=== PATIENT | female | born 1975 | race Caucasian/White ===

== ENCOUNTER 2020-03-08 14:30 | Emergency (ER) | payer MEDICAID, OTHER ==
--- NOTE | 2020-03-08 15:12 | ER Document Report ---
ED Medical Screen (RME) - General Chief Complaint: Abdominal Pain Stated Complaint: ABDOMINAL PAIN Time Seen by Provider: 03/08/20 15:10 Mode of Arrival: Wheelchair TRAVEL OUTSIDE OF THE [place] IN LAST 30 DAYS: No - HPI Onset: Last week Context: This 45-year-old female presents the emergency room with epigastric discomfort which is been ongoing for approximately 1 week associated now with diarrhea and some blood in her stool. My RME - Related Data Allergies/Adverse Reactions: No Known Allergies Allergy (Verified 01/21/16 18:56) Past Medical History GI Medical History: Reports: Hx Crohn's Disease Past Surgical History: Reports: Hx Section - x2, Hx Herniorrhaphy, Hx Hysterectomy - Immunizations Hx Diphtheria, Pertussis, Tetanus Vaccination: - Unknown Physical Exam - Vital signs Vitals: Temp Pulse Resp BP 99.1 F 108 H 20 138/102 H 03/08/20 14:36 03/08/20 14:36 03/08/20 14:36 03/08/20 14:36 Course - Vital Signs Vital signs: Temp Pulse Resp BP Pulse Ox 99.1 F 108 H 20 138/102 H 03/08/20 14:36 03/08/20 14:36 03/08/20 14:36 03/08/20 14:36
[2020-03-08] MEDS ORDERED: NORMAL SALINE 1000 ML 1,000 ML IV PRN (15:13)
[2020-03-08 16:01] LABS: ABSOLUTE BASOPHILS # (AUTO) 0.1 10^3/uL (0.0-0.2); ABSOLUTE EOSINOPHILS # (AUTO) 0.1 10^3/uL (0.0-0.6); ABSOLUTE LYMPHOCYTES (AUTO) 1.6 10^3/uL (0.5-4.7); ABSOLUTE MONOCYTES (AUTO) 0.5 10^3/uL (0.1-1.4); ABSOLUTE NEUT (AUTO) 4.2 10^3/uL (1.7-8.2); BASOPHILS % (AUTO) 0.9 % (0-2); EOSINOPHILS % (AUTO) 1.8 % (0-6); HEMATOCRIT 43.6 % (36.0-47.0); HEMOGLOBIN 15.3 g/dL (12.0-15.5); LYMPHOCYTES % (AUTO) 24.1 % (13-45); MEAN CORPUSCULAR HEMOGLOBIN 30.2 pg (27.0-33.4); MEAN CORPUSCULAR VOLUME 86 fl (80-97); MONOCYTES % (AUTO) 8.1 % (3-13); PLATELET COUNT 281 10^3/uL (150-450); RED BLOOD COUNT 5.06 10^6/uL (3.72-5.28); RED CELL DISTRIBUTION WIDTH 12.9 % (11.5-14.0); SEGMENTED NEUTROPHILS % (AUTO) 65.1 % (42-78); TOTAL CELLS COUNTED % (AUTO) 100 %; WHITE BLOOD COUNT 6.5 10^3/uL (4.0-10.5)
[2020-03-08 16:06] LABS: APPEARANCE,URINE CLEAR; BILIRUBIN,URINE NEGATIVE (NEGATIVE); COLOR,URINE YELLOW; GLUCOSE, URINE NEGATIVE (NEGATIVE); KETONES,URINE NEGATIVE (NEGATIVE); LEUKOCYTE ESTERASE,URINE NEGATIVE (NEGATIVE); NITRITE,URINE NEGATIVE (NEGATIVE); PROTEIN,URINE NEGATIVE (NEGATIVE); URINE SPECIFIC GRAVITY 1.021; UROBILINOGEN,URINE NEGATIVE mg/dL (<2.0)
[2020-03-08 16:21] LABS: ALBUMIN 4.4 g/dL (3.5-5.0); ALKALINE PHOSPHATASE 68 U/L (38-126); ANION GAP 7 (5-19); ASPARTATE AMINO TRANSFERASE 46 U/L (14-36); BILIRUBIN,TOTAL 0.5 mg/dL (0.2-1.3); BLOOD UREA NITROGEN 14 mg/dL (7-20); CALCIUM 9.6 mg/dL (8.4-10.2); CARBON DIOXIDE 27 mmol/L (22-30); CHLORIDE 105 mmol/L (98-107); GLUCOSE 124 mg/dL (75-110); POTASSIUM 3.9 mmol/L (3.6-5.0)
[2020-03-08] MEDS ORDERED: ONDANSETRON HCL INJ/PF 4 MG/2 ML SDV IV ONE (16:59)
[2020-03-08] MEDS ORDERED: FAMOTIDINE INJ/PF 20 MG/2 ML SDV IV ONE (16:59)
[2020-03-08] MEDS ORDERED: FENTANYL CITRATE INJ/PF 100 MCG/2 ML AMPUL IV ONE (16:59)
--- NOTE | 2020-03-08 17:00 | ER Document Report ---
ED GI/ - General Mode of Arrival: Wheelchair Information source: Patient TRAVEL OUTSIDE OF THE [place] IN LAST 30 DAYS: No - HPI Patient complains to provider of: Abdominal pain, Diarrhea, Vomiting Onset: Other - 5 days Timing/Duration: Persistent Quality of pain: Sharp Pain Level: 4 Location: Epigastric, LUQ, RUQ, Left flank, Right flank Associated symptoms: Blood in stool, Chills, Diarrhea, Nausea. denies: Fever, Urinary hesitancy, Urinary frequency, Urinary urgency, Vaginal discharge Exacerbated by: Denies Relieved by: Denies Similar symptoms previously: Yes Recently seen / treated by doctor: No <QUINTON VELEZ - Last Filed: 03/08/20 20:18> <JESSE DAVILA - Last Filed: 03/09/20 06:20> - General Chief Complaint: Abdominal Pain Stated Complaint: ABDOMINAL PAIN Time Seen by Provider: 03/08/20 15:10 Primary Care Provider: [facility] [Provider Group] - Follow up as needed Notes: Patient presents with 5-day history of abdominal tenderness and back pain. Patient states that yesterday she started to have nausea vomiting and diarrhea. Patient reports vomiting twice and having diarrhea x4 episodes. Patient states she does have chronic IBS so is uncertain if the diarrhea may be attributed to an exacerbation of her IBS. Patient states that she did notice blood with her bowel movement x2 episodes. Patient denies any fever or urinary symptoms. 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 Patient states she was also possibly diagnosed with Crohn's disease although they were not certain of the diagnosis and she did not follow back up with her GI specialist. (QUINTON VELEZ) - Related Data Allergies/Adverse Reactions: No Known Allergies Allergy (Verified 01/21/16 18:56) Past Medical History - General Information source: Patient - Social History Smoking Status: Former Smoker Frequency of alcohol use: None Drug Abuse: None Lives with: Family Family History: Reviewed & Not Pertinent Patient has homicidal ideation: No - Past Medical History Cardiac Medical History: Reports: Hx Hypercholesterolemia, Hx Hypertension GI Medical History: Reports: Hx Crohn's Disease - Possible, Hx Gastroesophageal Reflux Disease, Hx Irritable Bowel Past Surgical History: Reports: Hx Section - x2, Hx Herniorrhaphy, Hx Hysterectomy - Immunizations Hx Diphtheria, Pertussis, Tetanus Vaccination: - Unknown <QUINTON VELEZ - Last Filed: 03/08/20 20:18> Review of Systems - Review of Systems Constitutional: Chills. denies: Fever, Recent illness EENT: No symptoms reported Cardiovascular: No symptoms reported. denies: Chest pain Respiratory: No symptoms reported. denies: Cough, Short of breath Gastrointestinal: Abdominal pain, Diarrhea, Nausea, Vomiting, Blood streaked bowels. denies: Black stools Genitourinary: Flank pain. denies: Dysuria Female Genitourinary: No symptoms reported Musculoskeletal: No symptoms reported Skin: No symptoms reported Hematologic/Lymphatic: No symptoms reported Neurological/Psychological: No symptoms reported <QUINTON VELEZ - Last Filed: 03/08/20 20:18> Physical Exam - General General appearance: Appears well, Alert In distress: None - HEENT Head: Normocephalic Eyes: Normal Conjunctiva: Normal Nasal: Normal Mouth/Lips: Normal Mucous membranes: Normal Neck: Normal, Supple. No: Lymphadenopathy - Respiratory Respiratory status: No respiratory distress Chest status: Nontender Breath sounds: Normal. No: Rales, Rhonchi, Stridor, Wheezing Chest palpation: Normal - Cardiovascular Rhythm: Regular Heart sounds: S1 appreciated, S2 appreciated Murmur: No - Abdominal Inspection: Obese Distension: No distension Bowel sounds: Normal Tenderness: Tender - LUQ, suprapubic Organomegaly: No organomegaly - Rectal Tenderness: No Stool: Heme negative Hemorrhoids: External, Other - Fistula near anus that did have seepage of stool - Back Back: CVA tenderness - bilat - Extremities General upper extremity: Normal inspection, Normal strength General lower extremity: Normal inspection, Normal strength - Neurological Neuro grossly intact: Yes Cognition: Normal Hiltons Coma Scale Eye Opening: Spontaneous Sascha Coma Scale Verbal: Oriented Sascha Coma Scale Motor: Obeys Commands Sascha Coma Scale Total: 15 - Psychological Associated symptoms: Normal affect, Normal mood - Skin Skin Temperature: Warm Skin Moisture: Dry Skin Color: Normal <QUINTON VELEZ - Last Filed: 03/08/20 20:18> - Vital signs Vitals: Temp Pulse Resp BP 99.1 F 108 H 20 138/102 H 03/08/20 14:36 03/08/20 14:36 03/08/20 14:36 03/08/20 14:36 - Rectal Notes: THERON Irina as standby (QUINTON VELEZ) Course - Laboratory Result Diagrams: 03/08/20 15:45 03/08/20 15:45 <QUINTON VELEZ - Last Filed: 03/08/20 20:18> - Laboratory Result Diagrams: 03/08/20 15:45 03/08/20 15:45 <JESSE DAVILA - Last Filed: 03/09/20 06:20> - Re-evaluation Re-evalutation: 03/08/20 20:[address] scan. Patient reports that nausea is improved at this time. Patient reports mild upper abdominal tenderness. Bedside report and handoff given to BEAR Hutton. (QUINTON VELEZ) CT showing no acute concerning findings. There is a ventral hernia containing some fat, when I examined patient's abdomen I cannot find one particular area of tenderness which I do believe is the ventral hernia and patient winces with palpation of this area. There is no guarding or severe tenderness, no evidence of incarcerated hernia, no other concerning findings. I discussed with patient. She will be provided with surgical clinic referral, I did provide her with some pain medication and recommendations, I discussed return precautions, patient states understanding and agreement with plan. Stable and well-appearing at time of discharge. (JESSE DAVILA) - Vital Signs Vital signs: Temp Pulse Resp BP Pulse Ox 98.3 F 63 16 142/79 H 97 03/08/20 22:05 03/08/20 22:05 03/08/20 22:05 03/08/20 22:05 03/08/20 22:05 - Laboratory Laboratory results interpreted by me: 03/08/20 03/08/20 15:45 15:45 Glucose 124 H AST 46 H ALT 45 H Urine Blood SMALL H Discharge <QUINTON VELEZ - Last Filed: 03/08/20 20:18> <JESSE DAVILA - Last Filed: 03/09/20 06:20> - Discharge Clinical Impression: Nausea vomiting and diarrhea Abdominal pain Qualifiers: Abdominal location: generalized Qualified Code(s): R10.84 - Generalized abdominal pain Condition: Stable Disposition: HOME, SELF-CARE Additional Instructions: Your imaging shows a small ventral hernia. Based on your exam and symptoms I suspect this is the cause of your pain. Avoid heavy lifting, avoid constipation, you have been provided with pain and nausea medication to take if needed, if you do take the pain medication also take a stool softener to avoid constipation. Follow-up with general surgery referral for additional management of this. Return for any concerning symptoms including developing severe pain, hardness or redness to the area, uncontrolled vomiting, fever, or any other concerning or worsening symptoms. Prescriptions: Hydrocodone/Acetaminophen [[place] 5-325 mg Tablet] 1 - 2 tab PO Q6H PRN #12 tablet PRN Reason: Ondansetron [Zofran Odt 4 mg Tablet] 1 - 2 tab PO Q4H PRN #15 tab.rapdis PRN Reason: For Nausea/Vomiting Referrals: [facility] [Provider Group] - Follow up as needed
--- NOTE | 2020-03-08 21:22 | RADIOLOGY REPORT (SQ) ---
EXAM DESCRIPTION: CT ABDOMEN PELVIS WITH IV CONTRAST COMPLETED DATE/TME: 03/08/2020 00:00 CLINICAL HISTORY: 45 years, Female, abd pain, n/v, blood in stool, hx rectal fistula COMPARISON: None. TECHNIQUE: Contrast enhanced CT of the abdomen/pelvis was acquired. Coronal and sagittal reformations were created. Images were obtained after the uneventful administration of 100 mL of Omnipaque 350 intravenous contrast. Images stored on PACS. All CT scanners at this facility use dose modulation, iterative reconstruction, and/or weight based dosing when appropriate to reduce radiation dose to as low as reasonably achievable (ALARA). [facility]: Dose Right [facility]: CareDose [facility]: Dose Right [facility]: Teradose 4D [facility]: [employer] LIMITATIONS: None. FINDINGS: Limited evaluation of the lower chest reveals clear lung bases. The liver is diffusely low in attenuation relative to the spleen. No focal liver lesions are appreciated. Spleen, pancreas, and both adrenal glands appear normal. The gallbladder is absent. As a result, there is mild intrahepatic biliary ductal dilatation. The common bile duct appears normal in caliber. Both kidneys enhance symmetrically. No hydronephrosis or hydroureter. The urinary bladder is well distended and shows no suspicious finding. Uterus is absent. Neither ovary is visualized. Small and large bowel are normal in caliber. No evidence of bowel obstruction. Appendix is normal. Vascular structures opacify with contrast normally. No suspicious lymphadenopathy or drainable fluid collections are appreciated. Small fat-containing ventral hernia is noted just below the umbilicus. Bone windows through the abdomen/pelvis reveal no destructive osseous lesions. IMPRESSION: No acute abnormality within the abdomen or pelvis. Suspect hepatic steatosis. TECHNICAL DOCUMENTATION: Quality ID # 436: Final reports with documentation of one or more dose reduction techniques (e.g., Automated exposure control, adjustment of the mA and/or kV according to patient size, use of iterative reconstruction technique) copyright 2011 [employer]- All Rights Reserved
[2020-03-08] MEDS ORDERED: ONDANSETRON ODT 4 MG TAB (6 TAB/ER DISP) PO PRN (21:37)
[2020-03-08] MEDS ORDERED: HYDROCODONE/ACETAMINOPHEN 5-325 MG (6 TAB/ER DISP) PO PRN (21:37)
[2020-03-08 22:12] VITALS: BP 142/79
--- NOTE | 2020-03-09 20:51 | EKG REPORT ---
SEVERITY:- OTHERWISE NORMAL ECG - FAST SINUS ARRHYTHMIA, RATE [id number] : Confirmed by: Kayy Costa 09-Mar-2020 20:50:15
== END 2020-03-08 22:13 | disposition home or self-care (01) ==
LOC: ER 14:30
DX: R11.2 Nausea with vomiting, unspecified (principal); K43.9 Ventral hernia without obstruction or gangrene; R10.84 Generalized abdominal pain; K92.1 Melena; R68.83 Chills (without fever); L98.8 Other specified disorders of the skin and subcutaneous tissue; K64.4 Residual hemorrhoidal skin tags; R19.7 Diarrhea, unspecified; I10 Essential (primary) hypertension; Z87.891 Personal history of nicotine dependence
CPT/HCPCS: 93005; 99284; 96361; 96374; 96375; 36415; 83690; 85025; 80053; 81001; 84484; 74177; 93010; J3010; J2405; J7030; S0028

== ENCOUNTER → 2020-04-10 | Outpatient (CLI) | payer OTHER ==
--- NOTE | 2020-04-10 09:41 | RADIOLOGY REPORT (SQ) ---
EXAM DESCRIPTION: CT ABD/PELVIS WITH IV ORAL IMAGES COMPLETED DATE/TIME: 04/10/2020 8:50 am REASON FOR STUDY: K50.00 CROHN'S DISEASE OF SMALL INTESTINE WITHOUT COMPLICATIONS, K60.5 ANOR K50.00 CROHN'S DISEASE OF SMALL INTESTINE WITHOUT COMPLICATI K60.5 ANORECTAL FISTULA COMPARISON: 03/08/2020 TECHNIQUE: CT scan of the abdomen and pelvis performed using helical scanning technique with dynamic intravenous contrast injection. Patient was given rectal and oral contrast. Images reviewed with dillon ng, soft tissue, and bone windows. Reconstructed coronal and sagittal MPR images reviewed. Delayed im ages for evaluation of the urinary system also acquired. All images stored on PACS. All CT scanners at this facility use dose modulation, iterative reconstruction, and/or weight based d osing when appropriate to reduce radiation dose to as low as reasonably achievable (ALARA). [facility]: Dose Right [facility]: CareDose [facility]: Dose Right [facility]: Teradose 4D [facility]: [employer] CONTRAST TYPE AND DOSE: contrast/concentration: Isovue 350.00 mmol/ml; Total Contrast Delivered: 98. 0 ml; Total Saline Delivered: 72.0 ml RENAL FUNCTION: Creatinine 0.8 RADIATION DOSE: CT Rad equipment meets quality standard of care and radiation dose reduction techniq ues were employed. CTDIvol: 17.0 - 17.1 mGy. DLP: 1970 mGy-cm.. LIMITATIONS: None. FINDINGS: LOWER CHEST: No significant findings. No nodules or infiltrates. LIVER: Normal size. No masses. No dilated ducts. Suspect hepatic steatosis. SPLEEN: Normal size. No focal lesions. PANCREAS: Fullness of the pancreatic tail with 2.9 x 2.9 cm apparent mass (series 2, image 28), stabl e. No pancreatic ductal dilation. No peripancreatic stranding. GALLBLADDER: Surgically absent. ADRENAL GLANDS: No significant masses or asymmetry. RIGHT KIDNEY AND URETER: No solid masses. No significant calcifications. No hydronephrosis or hyd roureter. LEFT KIDNEY AND URETER: No solid masses. No significant calcifications. No hydronephrosis or hydr oureter. AORTA AND VESSELS: No aneurysm. No dissection. Separate origin of the hepatic and splenic arteries o ff the aorta. No high-grade mesenteric stenosis. . RETROPERITONEUM: No retroperitoneal adenopathy, hemorrhage or masses. BOWEL AND PERITONEAL CAVITY: Ill-defined soft tissue fullness along the perineum. No discrete drain able abscess or definitive fistula. No evidence of intestinal obstruction. No focal bowel wall thic kening. APPENDIX: Normal. PELVIS: Decompressed urinary bladder. Catheter within the rectum for administration of rectal contra st. Unchanged appearance of the left ovary. Right ovary nonvisualized. ABDOMINAL WALL: Small fat containing periumbilical hernia with a 18 mm aperture. No subcutaneous mas ses. Heterotopic ossification within the right gluteal region. BONES: No acute bony abnormality. No suspicious osseous lesions. OTHER: No other significant finding. IMPRESSION: 1. Ill-defined soft tissue fullness along the perineum. No discrete drainable abscess or definitive fistula. No evidence of intestinal obstruction. 2. Fullness of the pancreatic tail with questionable 2.9 x 2.9 cm solid mass, stable. Recommend ded icated pancreatic protocol CT or MRI for further characterization. No lymphadenopathy. 3. Suspect hepatic steatosis. Prior cholecystectomy. 4. Periumbilical fat containing hernia. TECHNICAL DOCUMENTATION: JOB ID: [id number] Quality ID # 436: Final reports with documentation of one or more dose reduction techniques (e.g., Au tomated exposure control, adjustment of the mA and/or kV according to patient size, use of iterative reconstruction technique) 2010 [employer]- All Rights Reserved Reading location - IP/workstation name: [email or web address]
== END ==
LOC: RAD 08:14
PROVIDERS: ATTEND Internal Medicine Gastroenterology
DX: K50.00 Crohn's disease of small intestine without complications (principal); K60.5 Anorectal fistula; K42.9 Umbilical hernia without obstruction or gangrene
CPT/HCPCS: 74177; 82565

== ENCOUNTER 2020-08-23 05:40 | Day surgery (SDC) | payer OTHER ==
[2020-08-20 10:16] LABS: HEMATOCRIT 39.7 % (36.0-47.0); HEMOGLOBIN 13.9 g/dL (12.0-15.5); MEAN CORPUSCULAR HEMOGLOBIN 30.1 pg (27.0-33.4); MEAN CORPUSCULAR HGB CONC 34.9 g/dL (32.0-36.0); MEAN CORPUSCULAR VOLUME 86 fl (80-97); PLATELET COUNT 214 10^3/uL (150-450); RED CELL DISTRIBUTION WIDTH 12.9 % (11.5-14.0); WHITE BLOOD COUNT 6.2 10^3/uL (4.0-10.5)
--- NOTE | 2020-08-20 15:16 | EKG REPORT ---
SEVERITY:- NORMAL ECG - SINUS RHYTHM : Confirmed by: Laina Morelos MD 20-Aug-2020 15:16:29
[~2020-08-23 05:40] MED LIST: ACETAMINOPHEN 1,000 MG/100 ML RTUPB IV ONE; ACETAMINOPHEN 1,000 MG/100 ML RTUPB IV PRN; CEFAZOLIN 2 GM/D5W RTU 2 GM/50 ML RTUPB IV ONE; CEFAZOLIN 2 GM/D5W RTU 2 GM/50 ML RTUPB IV PRN; IBUPROFEN 800 MG in NORMAL SALINE 250 ML IV PRN; LACTATED RINGERS 1000 ML IV PRN; LIDOCAINE 0.5% INJ-PF (5 MG/ML) 50 ML SDV SUBCUT PRN; PREGABALIN 50 MG CAPSULE PO PRN
[2020-08-23] MEDS ORDERED: HYDROMORPHONE HCL INJ/PF 2 MG/ML AMPULE ONE (06:44)
[2020-08-23] MEDS ORDERED: PROPOFOL INJ 200 MG/20 ML VIAL IV ONE (06:44)
[2020-08-23] MEDS ORDERED: FENTANYL CITRATE INJ/PF 250 MCG/5 ML AMPULE ONE (06:44)
[2020-08-23] MEDS ORDERED: BUPIVACAINE HCL 0.25 % INJ/PF (2.5 MG/1 ML) 30 ML VIAL ONE (06:48)
[2020-08-23] MEDS ORDERED: MIDAZOLAM 2 MG/2 ML INJ ONE (07:00)
[2020-08-23] MEDS ORDERED: DIPHENHYDRAMINE HCL 50 MG/ML VIAL IV PRN (09:12)
[2020-08-23] MEDS ORDERED: HYDROMORPHONE HCL INJ/PF 2 MG/ML AMPULE IV PRN (09:12)
[2020-08-23] MEDS ORDERED: MEPERIDINE HCL/PF INJ 25 MG/1 ML DISP.SYRIN IV PRN (09:12)
[2020-08-23] MEDS ORDERED: FENTANYL CITRATE INJ/PF 100 MCG/2 ML AMPUL IV PRN ×3 (09:12)
--- NOTE | 2020-08-23 10:08 | Operative Report ---
Nonrecallable Operative Report DATE OF SURGERY: 08/23/20 PREOPERATIVE DIAGNOSIS: Ventral, incisional hernia POSTOPERATIVE DIAGNOSIS: 1. Ventral/incisional hernia in the periumbilical region. 2. Right Spigelian hernia OPERATION: 1. Robot-assisted laparoscopic ventral, incisional hernia repair with mesh. 2. Robot-assisted laparoscopic right Spigelian hernia repair (primary suture repair). SURGEON: EMEKA BRUNNER HOUSE REPAIRER: CRYSTAL VELAZQUEZ ANESTHESIA: GA TISSUE REMOVED OR ALTERED: None COMPLICATIONS: None apparent ESTIMATED BLOOD LOSS: Minimal PROCEDURE: Drains/implants: 15 x [address] hernia mesh. Procedure in detail: After informed consent was obtained, the patient was brought into the operating room and laid in the supine position. The area of the abdomen was prepped and draped in a normal sterile fashion. A left upper quadrant trocar was placed via the Optiview technique, under direct laparoscopic visualization from the 5 mm camera. Once the camera was inserted into the abdominal cavity, gas insufflation was attached, and pneumoperitoneum was achi eved. Two 8 mm robotic trochars were then placed, one in the right upper quadrant, 1 in the left lower quadrant. This was done under direct laparoscopic visualization. The 5 mm trocar was removed, and replaced with a 12 mm balloon trocar. This was also done under direct laparoscopic visualization. The robot was then brought over the patient and docked appropriately. I then assumed my position at the surgeon's console. Attention was turned to lysis of adhesions, and removing the omentum. There was a large amount of omentum adherent to the anterior abdominal wall. The omentum was removed from the hernia defect, and the anterior abdominal wall using sharp dissection. Once this was completed, there was found to be a periumbilical incisional hernia, as well as a right-sided Spigelian hernia. The right-sided Spigelian hernia was repaired first. This was done with number 1 V lock suture in simple running fashion. After the Spigelian hernia was primarily repaired, the midline hernia defect was addressed. The midline hernia defect was closed using #1 V-Loc suture in simple running fashion. After this was completed, a 10 x [address] hernia mesh was placed into the abdominal cavity. It was apposed to the anterior abdominal wall using the EPS. Once completed, the mesh was sutured circumferentially to the anterior abdominal wall. This was done with 2-0 V lock suture in simple running fashion. The mesh was found to lie in very good place. The robot was undocked, and I scrubbed back into the patient's bedside. The 8 mm trocar sites were closed using 0 Vicryl suture in simple interrupted fashion with the aid of the King-Ulises device. The 12 mm trocar site was closed using 0 Vicryl suture in [id number] fashion with the aid of the King-Ulises device. The skin was then closed using 4-0 Vicryl Rapide suture in subcuticular fashion. Dressings were placed, and the procedure was concluded. All sponge, instrument, and needle counts were correct x2. Condition: Stable. Crystal Velazquez PA-C was scrubbed and present the entirety of the procedure. She assisted with all portions of the procedure including placement of the trochars, docking of the robot, exchanging of the robotic instruments, closure of the fascia, and closure of the skin.
--- NOTE | 2020-08-23 10:19 | Discharge Summary ---
Discharge Summary (SDC) - Discharge Final Diagnosis: Ventral incisional hernia and right Spigelian hernia Date of Surgery: 08/23/20 Discharge Date: 08/23/20 Forms: ASU Anesthesia D/C Instruction, Discharge POC-Surgical Service Treatment or Instructions: Discharge home. Diet as tolerated. Activity: No lifting more than 10 pounds up 6 weeks. Okay to shower starting on Wednesday. Follow-up with [facility] in 7 to 10 days. [place] 10/325 mg p.o. every 6 hours as needed for pain. No tub baths or swimming pools x2 weeks. Prescriptions: Hydrocodone/Acetaminophen [[place] 10-325 mg Tablet] 1 tab PO Q6HP PRN #28 tablet PRN Reason: For Pain Referrals: EMEKA ROWE MD [ACTIVE STAFF] - Discharge Diet: As Tolerated Respiratory Treatments at Home: Deep Breathing/Coughing, Incentive Spirometer Discharge Activity: No Lifting Over 10 Pounds, No Lifting/Push/Pulling Home Care Assistance: None Needed Report the Following to Your Physician Immediately: Shortness of Breath, Nausea, Vomiting, Increase in Pain, Fever over 101 Degrees
[2020-08-23] MEDS ORDERED: HYDROCODONE/ACETAMINOPHEN 10-325 MG TABLET PO PRN (10:29)
[2020-08-23] MEDS ORDERED: HYDROCODONE/ACETAMINOPHEN 10-325 MG TABLET ONE (10:37)
[2020-08-23 15:24] VITALS: BP 137/78
[2020-08-23] MEDS ORDERED: PHENYLEPHRINE HCL INJ/PF 10 MG/1 ML SDV ONE (15:34)
[2020-08-23] MEDS ORDERED: ONDANSETRON HCL INJ/PF 4 MG/2 ML SDV ONE (15:34)
[2020-08-23] MEDS ORDERED: DEXAMETHASONE SOD PHOSPHATE INJ 4 MG/1 ML VIAL ONE (15:34)
[2020-08-23] MEDS ORDERED: NEOSTIGMINE METHYLSULFATE 10 MG/10 ML VIAL ONE (15:34)
[2020-08-23] MEDS ORDERED: ROCURONIUM BROMIDE INJ 50 MG/5 ML VIAL IV ONE (15:34)
[2020-08-23] MEDS ORDERED: LIDOCAINE 2% INJ-PF (20 MG/ML) 2 ML AMPUL ONE (15:34)
[2020-08-23] MEDS ORDERED: GLYCOPYRROLATE 1 MG/5 ML VIAL ONE (15:34)
[2020-08-23] MEDS ORDERED: SUCCINYLCHOLINE CHLORIDE INJ 200 MG/10 ML VIAL ONE (15:34)
== END 2020-08-23 12:30 | disposition home or self-care (01) ==
LOC: OROUT 05:40
PROVIDERS: ATTEND Surgery
DX: K43.2 Incisional hernia without obstruction or gangrene (principal); K43.9 Ventral hernia without obstruction or gangrene; Z20.828 Contact with and (suspected) exposure to other viral communicable diseases; K50.90 Crohn's disease, unspecified, without complications; I10 Essential (primary) hypertension; E78.5 Hyperlipidemia, unspecified; E66.9 Obesity, unspecified; Z87.891 Personal history of nicotine dependence; Z86.010 Personal history of colon polyps; Z90.710 Acquired absence of both cervix and uterus; Z90.79 Acquired absence of other genital organ(s); Z90.49 Acquired absence of other specified parts of digestive tract
CPT/HCPCS: 49652; 49654; S2900; 36415; 790; 85027; 86850; 86900; 86901; 87635; 93005; 93010; C1781; C9803; J0131; J0330; J0690; J1100; J1170; J1741; J2250; J2370; J2405; J2704; J2710; J3010; J3490; J7050

== ENCOUNTER 2020-08-23 22:22 | Emergency (ER) | payer OTHER ==
[2020-08-23] MEDS ORDERED: HYDROMORPHONE HCL INJ/PF 2 MG/ML AMPULE IV ONE (23:11)
[2020-08-23] MEDS ORDERED: METOCLOPRAMIDE HCL INJ/PF 10 MG/2 ML SDV IV ONE (23:11)
[2020-08-23] MEDS ORDERED: NORMAL SALINE 1000 ML 1,000 ML IV ONE (23:12)
--- NOTE | 2020-08-23 23:12 | ER Document Report ---
ED General - General Chief Complaint: Abdominal Pain Stated Complaint: POST OP ABDOMINAL PAIN/VOMITING Time Seen by Provider: 08/23/20 23:05 Primary Care Provider: MIR PERRY PA-C [Primary Care Provider] - Follow up as needed Mode of Arrival: Ambulatory Information source: Patient Notes: Patient is a 45-year-old female coming in today for abdominal pain. Underwent a laparoscopic hernia repair earlier today. Around 8:00 this evening she started having uncontrollable pain with nausea and vomiting. No fevers or chills. TRAVEL OUTSIDE OF THE [place] IN LAST 30 DAYS: No - Related Data Allergies/Adverse Reactions: No Known Allergies Allergy (Verified 08/23/20 22:48) Past Medical History - Social History Smoking Status: Unknown if Ever Smoked Family History: Reviewed & Not Pertinent Patient has homicidal ideation: No - Past Medical History Cardiac Medical History: Reports: Hx Hypercholesterolemia, Hx Hypertension Denies: Hx Coronary Artery Disease, Hx Heart Attack Pulmonary Medical History: Denies: Hx Asthma, Hx COPD, Hx Pneumonia Neurological Medical History: Denies: Hx Cerebrovascular Accident, Hx Seizures GI Medical History: Reports: Hx Crohn's Disease - Possible, Hx Gastroesophageal Reflux Disease, Hx Irritable Bowel Musculoskeletal Medical History: Reports Hx Arthritis Past Surgical History: Reports: Hx Section - x2, Hx Herniorrhaphy, Hx Hysterectomy - Immunizations Hx Diphtheria, Pertussis, Tetanus Vaccination: No Review of Systems - Review of Systems Notes: Constitutional: No fevers. No chills. EENT: No eye redness. No eye pain. No ear pain. No sore throat. Cardiovascular: No chest pain. No palpitations. Respiratory: No cough. No shortness of breath. No respiratory distress. Gastrointestinal: + Abdominal pain with nausea and vomiting Genitourinary: Atraumatic. No lesions. No pain. No discharge. Musculoskeletal: Atraumatic. No swelling. No deformities. Skin: No rash or lesions. Lymphatic: No swollen lymph nodes. Neurologic: No headache. No syncope. Psychiatric: No suicidal or homicidal ideation. Physical Exam - Notes Notes: General: Moderate distress with pain Cardiac: Well-perfused. Regular rate and rhythm. No murmurs, rubs, or gallops. Pulmonary: No respiratory distress. No cyanosis. Bilateral lung banks are clear to auscultation. Abdominal: Obese abdomen. Soft. Diffusely tender although increasingly tender over the left lower abdomen. Multiple trocar sites consistent with laparoscopic surgery. No bleeding. Sounds are present in all 4 quadrants HEENT: Head is atraumatic. Conjunctivae not reddened. No tearing. PERRL. EOMI. Orbits atraumatic. No periorbital swelling or erythema. Oropharynx is without erythema, swelling, or exudates. Neck: Supple. No adenopathy. No meningismus. Dermatologic: Warm with good turgor. No rash. Atraumatic. Chest: Atraumatic. No chest wall tenderness to palpation. Musculoskeletal: Moves all extremities well. No range of motion deficits. no muscular or joint tenderness. No paraspinal muscle tenderness. no midline spinal tenderness or step-off. Genitourinary: Examination deferred Neurologic: No gross neurologic deficits. Psychiatric: Normal mood. Course - Re-evaluation Re-evalutation: 08/24/20 02:25 Patient has received Dilaudid, Reglan, and a liter of normal saline. Her pain is now a 2 out of 5. I am going to go ahead and give her a [place] 10 mg tablet as this is the same medication she was discharged home with. We will also give her a small bottle of Zofran to take home with her as well. I did touch base with Dr. Stubbs and he is amenable to the patient being discharged home and follow-up at her appointed clinic time. - Laboratory Result Diagrams: 08/24/20 00:00 08/24/20 00:00 Laboratory results interpreted by me: 08/24/20 08/24/20 08/24/20 00:00 00:00 01:25 WBC 13.3 H Lymph % (Auto) 7.0 L Absolute Neuts (auto) 11.8 H Seg Neutrophils % 88.7 H Sodium 134.8 L Glucose 188 H AST 78 H ALT 85 H Urine Ketones TRACE H Discharge - Discharge Clinical Impression: Postoperative abdominal pain Condition: Good Disposition: HOME, SELF-CARE Instructions: Abdominal Pain ([facility]) Additional Instructions: You may take Zofran every 4-6 hours as needed for nausea. Be sure to take your medication on time so that the pain does not get severe like it did earlier. Referrals: MIR PERRY PA-C [Primary Care Provider] - Follow up as needed
[2020-08-24 00:28] LABS: ABSOLUTE LYMPHOCYTES (AUTO) 0.9 10^3/uL (0.5-4.7); ABSOLUTE MONOCYTES (AUTO) 0.5 10^3/uL (0.1-1.4); ABSOLUTE NEUT (AUTO) 11.8 10^3/uL (1.7-8.2); BASOPHILS % (AUTO) 0.3 % (0-2); HEMATOCRIT 39.5 % (36.0-47.0); HEMOGLOBIN 13.8 g/dL (12.0-15.5); MEAN CORPUSCULAR HEMOGLOBIN 29.8 pg (27.0-33.4); MEAN CORPUSCULAR VOLUME 85 fl (80-97); PLATELET COUNT 265 10^3/uL (150-450); RED BLOOD COUNT 4.63 10^6/uL (3.72-5.28); RED CELL DISTRIBUTION WIDTH 12.9 % (11.5-14.0); SEGMENTED NEUTROPHILS % (AUTO) 88.7 % (42-78); TOTAL CELLS COUNTED % (AUTO) 100 %; WHITE BLOOD COUNT 13.3 10^3/uL (4.0-10.5)
[2020-08-24 00:51] LABS: ALBUMIN 4.4 g/dL (3.5-5.0); ALKALINE PHOSPHATASE 83 U/L (38-126); ANION GAP 11 (5-19); ASPARTATE AMINO TRANSFERASE 78 U/L (14-36); BILIRUBIN,DIRECT 0.1 mg/dL (0.0-0.4); BILIRUBIN,TOTAL 0.9 mg/dL (0.2-1.3); BLOOD UREA NITROGEN 10 mg/dL (7-20); CALCIUM 9.9 mg/dL (8.4-10.2); CARBON DIOXIDE 24 mmol/L (22-30); CHLORIDE 100 mmol/L (98-107); GLUCOSE 188 mg/dL (75-110); POTASSIUM 4.4 mmol/L (3.6-5.0); TOTAL PROTEIN 7.5 g/dL (6.3-8.2)
[2020-08-24 01:55] LABS: APPEARANCE,URINE CLEAR; BILIRUBIN,URINE NEGATIVE (NEGATIVE); COLOR,URINE YELLOW; GLUCOSE, URINE NEGATIVE (NEGATIVE); KETONES,URINE TRACE mg/dL (NEGATIVE); LEUKOCYTE ESTERASE,URINE NEGATIVE (NEGATIVE); NITRITE,URINE NEGATIVE (NEGATIVE); PROTEIN,URINE NEGATIVE (NEGATIVE); URINE SPECIFIC GRAVITY 1.016; UROBILINOGEN,URINE NEGATIVE mg/dL (<2.0)
--- NOTE | 2020-08-24 02:17 | RADIOLOGY REPORT (SQ) ---
CT abdomen and pelvis with contrast on 08/24/2020 at 1:33 AM CLINICAL INDICATION: Postoperative umbilical hernia repair pain TECHNIQUE: Multiple axial images are obtained throughout the abdomen and pelvis following the administration of IV contrast, 100 mL of Omnipaque 350contrast was administered intravenously without complication. This exam was performed according to our departmental dose-optimization program, which includes automated exposure control, adjustment of the mA and/or kV according to patient size and/or use of iterative reconstruction technique. Total DLP is 2760.06 mGy*cm. COMPARISON: 04/10/2020 FINDINGS: Abdomen: There is mild bibasilar atelectasis. The patient is status post cholecystectomy. There is fatty infiltration of the liver. The solid abdominal organs are otherwise unremarkable. There is no abdominal adenopathy. There is no free fluid in the abdomen. A few tiny foci of free air are noted in the left abdomen presumably postoperative. There is scattered irregular subcutaneous air within the left abdominal wall extending into the left pelvis. Presumably this is all related to recent laparoscopic surgery and air dissecting in the subcutaneous tissues related to that. This does need correlation with the timing of the patient's recent surgery. The patient is status post interval umbilical hernia repair. There is small air and fluid collection in the left periumbilical subcutaneous tissues consistent with likely small postoperative seroma. No evidence of residual or recurrent hernia is noted. The abdominal portion of the GI tract is unremarkable. Pelvis: The patient is status post hysterectomy. Trace free fluid is noted in the pelvis that is likely postoperative. There is no pelvic adenopathy. The pelvic portion of the GI tract including the appendix is unremarkable. Degenerative changes are noted in the spine. IMPRESSION: 1. Postsurgical changes from umbilical hernia repair surgery performed today per BEAR Panchal taking care of the patient. The subcutaneous emphysema and small amount of free intraperitoneal air and the postoperative changes at the umbilicus are all consistent with expected postsurgical changes. 2. Mild fatty infiltration of the liver.
[2020-08-24] MEDS ORDERED: ONDANSETRON 4 MG TAB.RAPDIS PO ONE (02:24)
[2020-08-24] MEDS ORDERED: HYDROCODONE/ACETAMINOPHEN 10-325 MG TABLET PO ONE (02:24)
[2020-08-24] MEDS ORDERED: ONDANSETRON ODT 4 MG TAB (6 TAB/ER DISP) PO PRN (02:27)
[2020-08-24 02:54] VITALS: BP 162/78
== END 2020-08-24 02:54 | disposition home or self-care (01) ==
LOC: ER 22:22
DX: G89.18 Other acute postprocedural pain (principal); R10.9 Unspecified abdominal pain; R11.2 Nausea with vomiting, unspecified; E78.00 Pure hypercholesterolemia, unspecified; I10 Essential (primary) hypertension
CPT/HCPCS: 99285; 96361; 96374; 96375; 36415; 83690; 85025; 80053; 81001; 74177; S0119; J2765; J1170; J7030